=== PATIENT | male | born 1970 | race Caucasian/White ===

== ENCOUNTER → 2021-03-12 02:46 | Outpatient (CLI) | payer BC, SELFPAY ==
[2021-03-12 17:43] LABS: SARS-CoV-2 RNA PCR Negative
== END ==
PROVIDERS: PCP Physician Assistant; Visit Provider Internal Medicine Gastroenterology
DX: Z01.812 Encounter for preprocedural laboratory examination (principal); Z20.822 Contact with and (suspected) exposure to COVID-19
CPT/HCPCS: C9803; U0003; U0005

== ENCOUNTER 2021-03-15 00:14 | Day surgery (SDC) | payer BC, SELFPAY ==
[2021-03-02 14:31] VITALS: BMI 28.8
[2021-03-15 06:50] VITALS: BP 118/83; PULSE 82; RESP 18; TEMP 36; O2SAT 100
[2021-03-15] MEDS: LACTATED RINGERS 1,000 ML 150 ML IV CONT (06:54)
--- NOTE | 2021-03-15 07:32 | WPDGICN ---
GI Consult Note Consult date/time: 03/15/21 07:32 HPI: Reason for visit colonoscopy. This very pleasant gentleman seen in consultation request the primary physician. Impression: Screening and surveillance colonoscopy. The patient has history of colon polyps and a family history colorectal cancer. HTN. HLD. Recommendation: Colonoscopy. History: This very pleasant gentleman is here for screening and surveillance colonoscopy. He has history of colon polyps and a family history of colorectal cancer. Physical examination: General: very pleasant patient in no acute distress. HEENT: Head was normocephalic sclerae is clear mouth without masses neck was supple. Heart: Rate rhythm regular without S3 or S4. Lungs: CTA. Abdomen: Soft with no guarding or rigidity. Bowel sounds were active. Neurologic: Cranial nerves 2 through 12 intact. No focal defects. No clonus. Musculoskeletal system: Revealed no joint tenderness or swelling no muscle atrophy. Extremities: Reveal no significant edema. Skin: Warm and dry with normal turgor. Mental status: intact. Patient is alert and oriented. Review of Systems Review of Systems: All systems reviewed & are unremarkable except as noted in HPI and below PMFSH Past Medical History Medical History Hypertension Family History Family History Other Alcohol abuse Colon cancer Heart disease Hyperlipidemia Hypertension Social History Social History Smoking status: Never smoker Second hand tobacco smoke exposure: No Alcohol intake: never Substance use: never Substance use type: does not use Living arrangements: with family Gender identity (if verbalized by the patient): Male Spiritual care concerns: No Meds Home Medications and Allergies Home Medications Medication Instructions Recorded Confirmed Type atorvastatin 10 mg tablet 10 mg PO DAILY #90 tablet 01/04/21 03/02/21 Rx Allergies Allergy/AdvReac Type Severity Reaction Status Date / Time No Known Allergies Allergy Verified 03/15/21 06:49 Vital Signs Vital Signs - 24 hr 03/15/21 06:50 Temperature 36.0 C L Pulse Rate 82 Respiratory Rate 18 Blood Pressure 118/83 Pulse Oximetry 100
--- NOTE | 2021-03-15 07:46 | WPDANESEPPF ---
Anes - Initial Pre Proc Eval Procedure: Operation Date: 03/15/21 08:00 Proposed Procedures p Screening Colonoscopy - Jacek Horan DO Date/Time: 03/15/21 07:46 Surgeon: Jacek Horan DO Pre Op Diagnosis: neoplasm screening colon Patient Data Age: 50 Gender: M Height: 5 ft 10 in Weight: 84 kg Last Vital Signs Temp 96.8 F L 03/15/21 06:50 Pulse 82 03/15/21 06:50 Resp 18 03/15/21 06:50 BP 118/83 03/15/21 06:50 Pulse Ox 100 03/15/21 06:50 Allergies Allergy/AdvReac Type Severity Reaction Status Date / Time No Known Allergies Allergy Verified 03/15/21 06:49 Home Medications Medication Instructions Recorded Confirmed Type atorvastatin 10 mg tablet 10 mg PO DAILY #90 tablet 01/04/21 03/02/21 Rx Patient hx anesthesia problems: none Family hx anesthesia problems: none PMFSH Past Medical History Medical History (Updated 03/15/21 @ 07:46 by Eliazar Quintero MD) Hypertension Mixed hyperlipidemia Family History Family History Other Alcohol abuse Colon cancer Heart disease Hyperlipidemia Hypertension Social History Social History Smoking status: Never smoker Second hand tobacco smoke exposure: No Alcohol intake: never Substance use: never Substance use type: does not use Living arrangements: with family Gender identity (if verbalized by the patient): Male Spiritual care concerns: No Anes - Eval Final PreProcedure Day of Procedure 03/15/21 07:46 Patient weight: overweight Heart: regular rate and rhythm Lungs: clear to auscultation Airway: Mallampati scale class II Neurological: alert and oriented Last oral intake: >/= 8 hours ASA classification: II Emergent: no Anesthetic plan: proceed Anesthesia type and monitoring: general GIVS and standard monitoring Informed Consent: The patient's anesthetic plan and its attendant risks and benefits were discussed with the patient/family/POA. Questions were solicited and answers provided to the satisfaction of the patient/family/POA.
[2021-03-15 08:47] VITALS: BP 113/73; PULSE 63; RESP 19; O2SAT 98
[2021-03-15 08:57] VITALS: BP 117/73; PULSE 63; RESP 23; O2SAT 99
[2021-03-15 09:07] VITALS: BP 121/81; PULSE 53; RESP 18; O2SAT 100
== END 2021-03-15 09:28 | disposition home or self-care (01) ==
PROVIDERS: PCP Physician Assistant; Visit Provider Internal Medicine Gastroenterology
PROC: 0DJD8ZZ Inspection of Lower Intestinal Tract, Via Natural or Artificial Opening Endoscopic (ICD-10-PCS; CPT 45378; principal; 2021-03-15 08:00)
DX: Z12.11 Encounter for screening for malignant neoplasm of colon (principal); D12.3 Benign neoplasm of transverse colon; K62.1 Rectal polyp; K64.8 Other hemorrhoids; I10 Essential (primary) hypertension; E78.5 Hyperlipidemia, unspecified; Z80.0 Family history of malignant neoplasm of digestive organs
CPT/HCPCS: 45385; 45380; 88305; J2704; J7120